=== PATIENT | male | born 1970 | race Caucasian/White ===

== ENCOUNTER 2020-12-03 16:22 | Outpatient (CLI) | payer OTHER ==
[2020-12-03 17:19] LABS: Bilirubin Neg (Negative); Blood, Urine Negative (Negative); Clarity Clear (Clear); Glucose, Urine (Dipstick) Normal (Negative); Ketone, Urine Negative (Negative); Leukocyte Negative (Negative); Nitrite Negative (Negative); Protein, Urine (Dipstick) Negative (Neg-Trace); Urobilinogen Normal mg/dL (Less than 2); pH, Urine 6.5 (5.0-9.0)
[2020-12-03 17:23] LABS: #Basophils 0.1 10x3/uL (0.0-0.2); #Eosinphils 0.1 10x3/uL (0.0-0.5); #Monocytes 0.6 10x3/uL (0.0-1.1); #Neutrophils 4.9 10x3/uL (1.5-8.4); %Eosinophils 1.7 % (0.0-6.0); %Lymphocytes 28.7 % (18.0-47.0); %Monocytes 7.6 % (0.0-10.0); %Neutrophils 60.6 % (40.0-75.0); Hemoglobin 16.1 g/dL (13.5-17.5); Mean Corpuscular HGB CONC 34.5 g/dL (32.0-36.0); Mean Corpuscular Hemoglobin 31.3 pg (27.0-33.0); Mean Corpuscular Volume 90.7 fl (81.2-95.1); Mean Platelet Volume 9.7 fl (7.4-10.4); Platelet Count 225 10x3/uL (150-450); RBC Distribution Width 12.6 % (11.5-14.5); Red Blood Cell (RBC) Count 5.14 10x6/uL (4.32-5.72)
[2020-12-03 17:36] LABS: Bacteria/HPF None Seen HPF (None Seen); RBC/HPF 0-3 HPF (0-3); Squamous Epithelial 0-3 HPF (0-3); WBC/HPF 0-3 HPF (0-3)
[2020-12-03 17:40] LABS: Anion Gap 14 mmol/L (10-20); BUN (Urea Nitrogen) 19 mg/dL (8.9-20.6); Calc. Creatinine Clearance 0 mL/min (70-130); Calcium 9.9 mg/dL (7.8-10.44); Carbon Dioxide 23 mmol/L (22-29); Chloride 103 mmol/L (98-107); Glucose 92 mg/dL (70-105); Potassium 4.4 mmol/L (3.5-5.1); Sodium 136 mmol/L (136-145)
[2020-12-03 18:52] LABS: INR-International Normal Ratio 0.8; Prothrombin Time 9.1 sec (9.5-12.1)
[2020-12-04 02:24] LABS: SARS-CoV-2 PCR by NAA Not Detected (NotDetected)
== END 2020-12-03 16:23 | disposition home or self-care (01) ==
LOC: LABBT 16:22
PROVIDERS: ATTEND Orthopaedic Surgery
DX: Z01.818 Encounter for other preprocedural examination (principal); M17.12 Unilateral primary osteoarthritis, left knee; Z20.822 Contact with and (suspected) exposure to COVID-19
CPT/HCPCS: 71046; 80048; 81001; 85025; 85610; 86850; 86900; 86901; 87081; 93005; 93010; U0003; U0005

== ENCOUNTER 2020-12-08 05:31 | Inpatient (IN) | payer OTHER ==
[2020-12-03 17:19] LABS: Bilirubin Neg (Negative); Blood, Urine Negative (Negative); Clarity Clear (Clear); Glucose, Urine (Dipstick) Normal (Negative); Ketone, Urine Negative (Negative); Leukocyte Negative (Negative); Nitrite Negative (Negative); Protein, Urine (Dipstick) Negative (Neg-Trace); Urobilinogen Normal mg/dL (Less than 2); pH, Urine 6.5 (5.0-9.0)
[2020-12-03 17:23] LABS: #Basophils 0.1 10x3/uL (0.0-0.2); #Eosinphils 0.1 10x3/uL (0.0-0.5); #Monocytes 0.6 10x3/uL (0.0-1.1); #Neutrophils 4.9 10x3/uL (1.5-8.4); %Eosinophils 1.7 % (0.0-6.0); %Lymphocytes 28.7 % (18.0-47.0); %Monocytes 7.6 % (0.0-10.0); %Neutrophils 60.6 % (40.0-75.0); Hemoglobin 16.1 g/dL (13.5-17.5); Mean Corpuscular HGB CONC 34.5 g/dL (32.0-36.0); Mean Corpuscular Hemoglobin 31.3 pg (27.0-33.0); Mean Corpuscular Volume 90.7 fl (81.2-95.1); Mean Platelet Volume 9.7 fl (7.4-10.4); Platelet Count 225 10x3/uL (150-450); RBC Distribution Width 12.6 % (11.5-14.5); Red Blood Cell (RBC) Count 5.14 10x6/uL (4.32-5.72)
[2020-12-03 17:36] LABS: Bacteria/HPF None Seen HPF (None Seen); RBC/HPF 0-3 HPF (0-3); Squamous Epithelial 0-3 HPF (0-3); WBC/HPF 0-3 HPF (0-3)
[2020-12-03 17:40] LABS: Anion Gap 14 mmol/L (10-20); BUN (Urea Nitrogen) 19 mg/dL (8.9-20.6); Calc. Creatinine Clearance 0 mL/min (70-130); Calcium 9.9 mg/dL (7.8-10.44); Carbon Dioxide 23 mmol/L (22-29); Chloride 103 mmol/L (98-107); Glucose 92 mg/dL (70-105); Potassium 4.4 mmol/L (3.5-5.1); Sodium 136 mmol/L (136-145)
[2020-12-03 18:52] LABS: INR-International Normal Ratio 0.8; Prothrombin Time 9.1 sec (9.5-12.1)
[2020-12-04 02:24] LABS: SARS-CoV-2 PCR by NAA Not Detected (NotDetected)
[2020-12-04 13:09] VITALS: BMI 29.7
[2020-12-08] MEDS ORDERED: Tranexamic Acid 1,000 MG/10 ML VIAL ONE ×2 (06:40→10:12)
[2020-12-08] MEDS ORDERED: Famotidine/PF 20 mg/2ml Vial ONE (06:40)
[2020-12-08] MEDS ORDERED: ceFAZolin 2 GM/DEX 5% 100 ML BAG ONE (06:40)
[2020-12-08] MEDS ORDERED: Sodium Chloride 0.9% 100 ML ONE (06:41)
[2020-12-08] MEDS ORDERED: Bupivacaine PF 0.5% 30 ML VIAL ONE (06:43)
[2020-12-08] MEDS ORDERED: Fentanyl 100 MCG/2 ML VIAL ONE ×4 (06:47→10:00)
[2020-12-08] MEDS ORDERED: Lidocaine 1% (PF) 30 ML VIAL ONE (06:47)
[2020-12-08] MEDS ORDERED: Midazolam HCl 2 mg/2 ml Vial ONE ×3 (06:47→07:03)
[2020-12-08] MEDS ORDERED: Vancomycin 1.5 GRAM/300 ML BAG 1.5 GM in Premix Bag 1 BAG IVPB SCH (07:00)
[2020-12-08] MEDS ORDERED: Ondansetron PF 4 MG/2 ML Vial IVP PRN ×2 (07:12→08:15)
[2020-12-08] MEDS ORDERED: Fentanyl 100 MCG/2 ML VIAL SLOW IVP PRN (07:12)
[2020-12-08] MEDS ORDERED: HYDROcodone/Acetaminophen 10/325 mg Tablet PO PRN ×3 (07:12→08:15)
[2020-12-08] MEDS ORDERED: diphenhydrAMINE 25 MG CAP PO PRN (07:12)
[2020-12-08] MEDS ORDERED: Promethazine HCl 25 MG/ML VIAL IM PRN ×3 (07:12→08:33)
[2020-12-08] MEDS ORDERED: traMADol HCl 50 MG TAB PO PRN ×3 (07:12→08:15)
[2020-12-08] MEDS ORDERED: Zolpidem Tartrate 5 MG TAB PO PRN ×2 (07:12→08:15)
[2020-12-08] MEDS ORDERED: Acetaminophen 325 MG TAB PO PRN (07:12)
[2020-12-08] MEDS ORDERED: Dexamethasone 20 MG/5 ML VIAL ONE (07:14)
[2020-12-08] MEDS ORDERED: PROPOFOL 200 MG/20 ML VIAL ONE (07:14)
[2020-12-08] MEDS ORDERED: Lidocaine 1% PF 5 ML VIAL ONE (07:14)
[2020-12-08] MEDS ORDERED: Ondansetron PF 4 MG/2 ML Vial ONE (07:14)
[2020-12-08] MEDS ORDERED: Bupivacaine HCl 0.5%/Epinephrine 1:200,000/PF 30 ml Vial ONE (07:14)
[2020-12-08] MEDS ORDERED: Ketorolac Tromethamine 30 MG/ML VIAL ONE (07:14)
[2020-12-08] MEDS ORDERED: Tranexamic Acid 1,000 MG in Sodium Chloride 0.9% 100 ML IVPB SCH (07:15)
[2020-12-08] MEDS ORDERED: Ropivacaine 0.2% 550 ML 550 ML NERVE BLCK SCH (08:15)
[2020-12-08] MEDS ORDERED: Promethazine HCl 25 MG/ML VIAL IVPB PRN (08:33)
[2020-12-08] MEDS ORDERED: HYDROmorphone 2 MG/ML VIAL SLOW IVP PRN (08:33)
[2020-12-08] MEDS ORDERED: Meperidine HCl/PF 25 MG/ML VIAL SLOW IVP PRN (08:33)
[2020-12-08] MEDS ORDERED: Ropivacaine 0.5% HCl/PF (150 MG/30 ML VIAL) ONE (09:59)
[2020-12-08] MEDS ORDERED: HYDROmorphone 0.5 MG/0.5 ML SYRINGE ONE ×4 (10:12→13:54)
[2020-12-08] MEDS ORDERED: Labetalol HCl 100 MG/20 ML VIAL ONE (10:37)
[2020-12-08] MEDS ORDERED: hydrALAZINE 20 MG/ML VIAL ONE (11:43)
[2020-12-08] MEDS ORDERED: Ketorolac Tromethamine 30 MG/ML VIAL IVP SCH (14:00)
[2020-12-08] MEDS: ceFAZolin Sodium/D5W 2 GM in Premix Bag 1 BAG IVPB SCH (14:52)
[2020-12-08] MEDS: Fentanyl 100 MCG/2 ML VIAL IV PRN ×4 (14:53→22:12)
[2020-12-08] MEDS: Sodium Chloride 0.9% 1,000 ML IV SCH (14:55)
[2020-12-08] MEDS: Aspirin 81 mg Enteric Coated Tablet PO SCH ×2 (15:00→19:29)
[2020-12-08] MEDS: HYDROcodone/Acetaminophen 10/325 mg Tablet PO PRN ×2 (16:04→19:29)
[2020-12-08] MEDS ORDERED: Vancomycin HCl 1.5 GM in Sodium Chloride 0.9% 250 ML 300 ML IVPB SCH (20:00)
[2020-12-09] MEDS: HYDROcodone/Acetaminophen 10/325 mg Tablet PO PRN ×4 (00:55→14:11)
[2020-12-09] MEDS: ceFAZolin Sodium/D5W 2 GM in Premix Bag 1 BAG IVPB SCH (00:57)
[2020-12-09] MEDS: Sodium Chloride 0.9% 1,000 ML IV SCH ×2 (02:17→03:33)
[2020-12-09] MEDS: Fentanyl 100 MCG/2 ML VIAL IV PRN ×3 (03:31→11:01)
[2020-12-09 06:54] LABS: Hemoglobin 12.3 g/dL (14.0-18.0); Mean Corpuscular HGB CONC 34.9 g/dL (32.0-36.0); Mean Corpuscular Hemoglobin 32.7 pg (27.0-31.0); Mean Corpuscular Volume 93.8 fL (78.0-98.0); Mean Platelet Volume 7.2 fL (7.4-10.4); Platelet Count 176 thou/uL (130-400); RBC Distribution Width 12.1 % (11.5-14.5); Red Blood Cell (RBC) Count 3.76 mill/uL (4.70-6.10); White Blood Cell (WBC) Count 11.6 thou/uL (4.8-10.8)
[2020-12-09] MEDS ORDERED: Ferrous Gluconate 324 MG TAB PO SCH (08:00)
[2020-12-09] MEDS: Aspirin 81 mg Enteric Coated Tablet PO SCH (08:46)
[2020-12-09] MEDS ORDERED: Multivitamin W/ Minerals 1 TAB PO SCH (09:00)
[2020-12-09] MEDS ORDERED: Senokot S 8.6-50 MG TAB PO SCH (09:00)
[2020-12-09 12:12] VITALS: BP 147/89; TEMP 97.6
[2020-12-09] MEDS ORDERED: FLU VACC QS2021-22(6MOS UP)/PF 60 MCG/0.5 ML SYRINGE IM ONE (17:00)
== END 2020-12-09 15:30 | disposition home health service (06) | DRG 470 ==
LOC: SDC 05:31 → SJJU 07:15
PROVIDERS: ADMIT Orthopaedic Surgery; ATTEND Orthopaedic Surgery
PROC: 0SRD0J9 Replacement of Left Knee Joint with Synthetic Substitute, Cemented, Open Approach (ICD-10-PCS; principal; 2020-12-08)
DX: M17.12 Unilateral primary osteoarthritis, left knee (principal); F32.A Depression, unspecified; F17.200 Nicotine dependence, unspecified, uncomplicated
CPT/HCPCS: 36415; 80048; 81001; 85025; 85027; 85610; 86850; 86900; 86901; 87081; A4306; C1713; C1776; J0360; J1100; J1170; J1885; J2001; J2250; J2405; J2704; J2795; J3010; J3370; J3490; J7050; S0020; S0028; U0003; U0005

== ENCOUNTER 2021-03-09 16:05 | Outpatient (CLI) | payer OTHER ==
[2021-03-10 11:36] LABS: SARS-CoV-2 PCR by NAA Not Detected (NotDetected)
== END 2021-03-09 16:06 | disposition home or self-care (01) ==
LOC: LABBT 16:05
PROVIDERS: ATTEND Orthopaedic Surgery
DX: Z01.812 Encounter for preprocedural laboratory examination (principal); Z20.822 Contact with and (suspected) exposure to COVID-19
CPT/HCPCS: U0003; U0005

== ENCOUNTER 2021-09-25 13:47 | Outpatient (CLI) | payer OTHER | END 2021-09-25 13:48 | disposition home or self-care (01) | LOC: SCSMRI 13:47 | PROVIDERS: ATTEND Orthopaedic Surgery | DX: M23.91 Unspecified internal derangement of right knee (principal); M22.41 Chondromalacia patellae, right knee ==